=== PATIENT | male | born 2005 | race African-American/Black ===

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

== ENCOUNTER 2024-01-26 19:39 | Emergency (ER) | payer SELFPAY ==
[~2024-01-26] VITALS: Ht 165.1 cm; Wt 61.0 kg
[~2024-01-26 19:39] MED LIST changes: +NAPROXEN500 MG PO; +SILVADENE1 % EX
[2024-01-26] MEDS ORDERED: ACETAMINOPHEN 500 MG TAB PO ONE (21:10)
[2024-01-26] MEDS ORDERED: DICLOFENAC SODIUM 75 MG/TAB PO ONE (21:10)
[2024-01-26] MEDS ORDERED: VOLTAREN - GENE75 MG PO (21:13)
[2024-01-26 21:30] VITALS: BP 129/60
== END 2024-01-26 21:30 | disposition home or self-care (01) | DRG 563 ==
LOC: ED 19:39
DX: S39.012A Strain of muscle, fascia and tendon of lower back, initial encounter (principal); X50.0XXA Overexertion from strenuous movement or load, initial encounter; Y93.89 Activity, other specified; Y92.89 Other specified places as the place of occurrence of the external cause